=== PATIENT | male | born 1970 | race Caucasian/White ===

== ENCOUNTER 2023-10-13 08:00 | Outpatient (CLI) | payer BC, OTHER ==
[2023-10-13 17:07] LABS: CALCIUM 9.8 mg/dL (8.5-10.3); POTASSIUM 3.9 mmol/L (3.5-4.5)
== END 2023-10-13 23:59 | disposition home or self-care (01) ==
LOC: LAB.S 08:00
PROVIDERS: ATTEND Registered Nurse
DX: U07.1 COVID-19 (principal)
CPT/HCPCS: 36415; 80048